=== PATIENT | female | born 1940 | race Caucasian/White ===

== ENCOUNTER 2022-06-30 13:30 | Outpatient (CLI) | payer MEDICARE, OTHER, SELFPAY ==
--- NOTE | 2022-06-30 13:45 | CRLHL7_ITS ---
For Patients: As a result of the Century Cures Act, medical imaging exams and procedure reports are released immediately into your electronic medical record. You may view this report before your referring provider. If you have questions, please contact your health care provider. INDICATION: Rectal cancer. COMPARISON: None. TECHNIQUE: Precontrast T1 and T2 weighted imaging; T2 haste imaging; diffusion weighted imaging; in and out of phase imaging; postcontrast imaging; 15 cc of Dotarem contrast was injected intravenously. FINDINGS: Status post cholecystectomy. Nonobstructive dilatation of the extrahepatic biliary duct system without any evidence of choledocholithiasis. Multiple hepatic cysts throughout the liver. No evidence of metastatic disease within the liver. No focal hepatic or splenic pathology. No pancreatic pathology. No adrenal pathology. Kidneys are unremarkable. No retroperitoneal lymphadenopathy. No evidence of abdominal ascites. No evidence of pleural effusion. IMPRESSION: Status post cholecystectomy with nonobstructive dilatation of the extrahepatic biliary duct system No evidence of metastatic disease. Dictated by Yumiko Sheehan MD @ 07/02/2022 9:51:51 AM (Electronically Signed)
--- NOTE | 2022-06-30 15:15 | CRLHL7_ITS ---
For Patients: As a result of the Century Cures Act, medical imaging exams and procedure reports are released immediately into your electronic medical record. You may view this report before your referring provider. If you have questions, please contact your health care provider. INDICATION: Rectal cancer; staging. COMPARISON: MRI of the abdomen same date. TECHNIQUE: Rectal MR without and with intravenous contrast ; 15 cc of Dotarem contrast was injected. FINDINGS: A 6.5 x 2.4 cm mass involving the rectum involving 270 degrees of the circumference anteriorly and to the right. There is infiltration into the surrounding soft tissue. Lymphadenopathy identified in the mesorectal fat. Lymph nodes are identified to the right of the midline. Small lymph nodes in the perirectal area. No fluid identified within the pelvic peritoneal cavity. This is above the anal verge. IMPRESSION: Bulky rectal tumor with what appears to be infiltration into the surrounding soft tissue and lymphadenopathy most likely metastatic. Dictated by Yumiko Sheehan MD @ 07/02/2022 10:06:15 AM (Electronically Signed)
== END 2022-06-30 13:31 | disposition home or self-care (01) ==
LOC: MRI 13:39
PROVIDERS: PCP Nurse Practitioner Family; Visit Provider Internal Medicine Hematology & Oncology
DX: C20 Malignant neoplasm of rectum (principal)
CPT/HCPCS: 72197; 74183; A9575